=== PATIENT | male | born 1960 | race Caucasian/White ===

== ENCOUNTER → 2016-08-09 | Outpatient (REF) | payer OTHER ==
[2016-08-09 18:09] LABS: MEAN CORPUSCULAR HEMOGLOBIN 29.5 pg (27.0-33.0); MEAN CORPUSCULAR HGB CONC 33.5 g/dl (32.0-36.5); RED CELL DISTRIBUTION WIDTH 12.6 % (11.5-14.5); WHITE BLOOD COUNT 5.8 K/mm3 (4.0-10.0)
[2016-08-09 18:13] LABS: ALBUMIN 4.3 GM/DL (3.2-5.2); ALBUMIN/GLOBULIN RATIO 1.19 (1.00-1.93); ALKALINE PHOSPHATASE 125 U/L (45-117); ALT/SGPT 63 U/L (12-78); ANION GAP 7 MEQ/L (8-16); AST/SGOT 25 U/L (15-37); BILIRUBIN,TOTAL 0.7 MG/DL (0.2-1.0); BLOOD UREA NITROGEN 19 MG/DL (7-18); CARBON DIOXIDE LEVEL 28 MEQ/L (21-32); CHLORIDE LEVEL 103 MEQ/L (98-107); CHOLESTEROL LEVEL 224 MG/DL (<200); CREATININE FOR GFR 1.04 MG/DL (0.70-1.30); GLOMERULAR FILTRATION RATE > 60.0 (>56); GLUCOSE, FASTING 98 MG/DL (70-105); POTASSIUM SERUM 4.1 MEQ/L (3.5-5.1); SODIUM LEVEL 138 MEQ/L (136-145); TOTAL PROTEIN 7.9 GM/DL (6.4-8.2); TRIGLYCERIDES LEVEL 171 MG/DL (<150)
== END ==
LOC: M SFHCCLAY 10:15
PROVIDERS: ATTEND Nurse Practitioner Family
DX: K21.9 Gastro-esophageal reflux disease without esophagitis (principal); I10 Essential (primary) hypertension; E78.5 Hyperlipidemia, unspecified; F32.9 Major depressive disorder, single episode, unspecified; Z13.21 Encounter for screening for nutritional disorder

== ENCOUNTER 2017-09-27 14:51 | Emergency (ER) | payer OTHER, SELFPAY ==
[2017-09-27] MEDS ORDERED: RABIES IMMUNE GLOBULIN 1500 INTERNATIONAL UNITS/10 ML VIAL (90375) IM (17:00)
[2017-09-27] MEDS: RABIES VACCINE HUMAN 2.5 INTERNATIONAL UNITS/ML VIAL (90675) IM (17:21)
[2017-09-27] MEDS: ADACEL/BOOSTRIX VACCINE (DIPHTH/PERTUSS/ACELL/TETANUS)0.5ML SYR (90715) IM (17:21)
[2017-09-27] MEDS: RABIES IMMUNE GLOBULIN 1500 INTERNATIONAL UNITS/10 ML VIAL (90375) IM (18:27)
[2017-09-27] MEDS: RABIES IMMUNE GLOBULIN 300 INTERNATIONAL UNITS/2 ML VIAL (90375) IM (18:28)
== END 2017-09-27 18:37 | disposition home or self-care (01) ==
LOC: M ED 14:51
DX: Z20.3 Contact with and (suspected) exposure to rabies (principal); Z23 Encounter for immunization; S91.052A Open bite, left ankle, initial encounter; W55.51XA Bitten by raccoon, initial encounter; Y92.9 Unspecified place or not applicable; Y93.9 Activity, unspecified; K21.9 Gastro-esophageal reflux disease without esophagitis; F41.9 Anxiety disorder, unspecified; Z79.899 Other long term (current) drug therapy
CPT/HCPCS: 90715

== ENCOUNTER 2017-09-30 12:48 | Emergency (ER) | payer OTHER ==
[2017-09-30] MEDS: RABIES VACCINE HUMAN 2.5 INTERNATIONAL UNITS/ML VIAL (90675) IM (14:30)
== END 2017-09-30 14:36 | disposition home or self-care (01) ==
LOC: M ED 12:48
DX: Z20.3 Contact with and (suspected) exposure to rabies (principal); S91.052A Open bite, left ankle, initial encounter; W55.51XA Bitten by raccoon, initial encounter; Y92.89 Other specified places as the place of occurrence of the external cause
CPT/HCPCS: 90675

== ENCOUNTER 2017-10-04 06:17 | Emergency (ER) | payer OTHER ==
[2017-10-04] MEDS: RABIES VACCINE HUMAN 2.5 INTERNATIONAL UNITS/ML VIAL (90675) IM (06:30)
== END 2017-10-04 06:49 | disposition home or self-care (01) ==
LOC: M ED 06:17
DX: Z20.3 Contact with and (suspected) exposure to rabies (principal); Z23 Encounter for immunization; K21.9 Gastro-esophageal reflux disease without esophagitis; F41.9 Anxiety disorder, unspecified; Z79.899 Other long term (current) drug therapy
CPT/HCPCS: 90471

== ENCOUNTER → 2017-10-04 | Outpatient (REF) | payer OTHER ==
[2017-10-04 12:34] LABS: CHOLESTEROL LEVEL 189 MG/DL (<200); CHOLESTEROL RISK RATIO 4.973 (<5); HDL CHOLESTEROL 38 MG/DL (>40); LDL CHOLESTEROL 117.8 MG/DL (<100); NON-HDL-C 151 MG/DL; TRIGLYCERIDES LEVEL 166 MG/DL (<150)
== END ==
LOC: M SFHCCLAY 08:05
DX: E78.5 Hyperlipidemia, unspecified (principal)

== ENCOUNTER 2017-10-11 19:31 | Emergency (ER) | payer OTHER ==
[2017-10-11] MEDS: RABIES VACCINE HUMAN 2.5 INTERNATIONAL UNITS/ML VIAL (90675) IM (20:03)
== END 2017-10-11 20:26 | disposition home or self-care (01) ==
LOC: M ED 19:31
DX: Z20.3 Contact with and (suspected) exposure to rabies (principal); F41.9 Anxiety disorder, unspecified; K21.9 Gastro-esophageal reflux disease without esophagitis
CPT/HCPCS: 90471

== ENCOUNTER → 2019-08-14 | Outpatient (REF) | payer OTHER, SELFPAY ==
[~2019-08-14] MED LIST: AUGM875T28 PO; BACL1TAB9 PO; LORA1TAB4 PO; OMEP40CA97 PO
[2019-08-14 11:56] LABS: HEMATOCRIT 48.7 % (42.0-52.0); HEMOGLOBIN 16.2 g/dl (13.5-17.5); MEAN CORPUSCULAR HEMOGLOBIN 29.9 pg (27.0-33.0); MEAN CORPUSCULAR HGB CONC 33.3 g/dl (32.0-36.5); MEAN CORPUSCULAR VOLUME 89.9 fl (80.0-96.0); PLATELET COUNT, AUTOMATED 268 10^3/uL (150-450); RED BLOOD COUNT 5.42 10^6/uL (4.30-6.10); WHITE BLOOD COUNT 7.8 10^3/uL (4.0-10.0)
[2019-08-14 12:17] LABS: ALBUMIN 3.9 GM/DL (3.2-5.2); ALT/SGPT 41 U/L (12-78); BILIRUBIN,TOTAL 0.4 MG/DL (0.2-1.0); BLOOD UREA NITROGEN 25 MG/DL (7-18); CALCIUM LEVEL 8.7 MG/DL (8.8-10.2); CARBON DIOXIDE LEVEL 30 MEQ/L (21-32); CHLORIDE LEVEL 105 MEQ/L (98-107); CHOLESTEROL LEVEL 167 MG/DL (<200); CHOLESTEROL RISK RATIO 5.218 (<5); CREATININE FOR GFR 1.06 MG/DL (0.70-1.30); GLOMERULAR FILTRATION RATE > 60.0 (>49); GLUCOSE, FASTING 103 MG/DL (70-100); HDL CHOLESTEROL 32 MG/DL (>40); LDL CHOLESTEROL 89 MG/DL (<100); NON-HDL-C 135 MG/DL; POTASSIUM SERUM 4.3 MEQ/L (3.5-5.1); SODIUM LEVEL 140 MEQ/L (136-145); TOTAL PROTEIN 7.2 GM/DL (6.4-8.2); TRIGLYCERIDES LEVEL 230 MG/DL (<150)
[2019-08-14 13:57] LABS: TOTAL 25(OH) VITAMIN D 29.8 NG/ML (30.0-100.0)
[2019-08-16 00:10] LABS: TESTOSTERONE FREE (DIRECT) 4.4 pg/mL (6.6-18.1)
== END ==
LOC: M SFHCCLAY 08:17
PROVIDERS: ATTEND Nurse Practitioner Family
DX: R53.83 Other fatigue (principal); Z13.21 Encounter for screening for nutritional disorder; K21.9 Gastro-esophageal reflux disease without esophagitis; I10 Essential (primary) hypertension; E78.5 Hyperlipidemia, unspecified

== ENCOUNTER → 2021-01-17 | Outpatient (REF) | payer OTHER ==
[~2021-01-17] MED LIST changes: +OMEP40CA4 PO; -OMEP40CA97 PO
== END ==
LOC: M SFHCLERA 15:08
PROVIDERS: ATTEND Nurse Practitioner Family
DX: F43.23 Adjustment disorder with mixed anxiety and depressed mood (principal); Z53.9 Procedure and treatment not carried out, unspecified reason

== ENCOUNTER 2021-01-25 05:26 | Inpatient (IN) | payer OTHER ==
[2021-01-25 06:57] LABS: AMPHETAMINES LEVEL URINE POSITIVE (NEGATIVE); BARBITURATES URINE NEGATIVE (NEGATIVE); BENZODIAZEPINES URINE NEGATIVE (NEGATIVE); CANNABINOIDS URINE NEGATIVE (NEGATIVE); COCAINE METABOLITE URINE NEGATIVE (NEGATIVE); METHADONE URINE NEGATIVE (NEGATIVE); OPIATES URINE POSITIVE (NEGATIVE); PHENCYCLIDINE URINE NEGATIVE (NEGATIVE)
[2021-01-25 07:28] LABS: HEMATOCRIT 45.1 % (42.0-52.0); HEMOGLOBIN 14.9 g/dl (13.5-17.5); MEAN CORPUSCULAR HEMOGLOBIN 30.5 pg (27.0-33.0); MEAN CORPUSCULAR VOLUME 92.4 fl (80.0-96.0); PLATELET COUNT, AUTOMATED 244 10^3/uL (150-450); RED BLOOD COUNT 4.88 10^6/uL (4.30-6.10); WHITE BLOOD COUNT 10.3 10^3/uL (4.0-10.0)
[2021-01-25 07:57] LABS: ACETAMINOPHEN LEVEL < 2.0 UG/ML (10.0-30.0); ALBUMIN 3.7 GM/DL (3.2-5.2); ALT/SGPT 34 U/L (12-78); BILIRUBIN,DIRECT 0.2 MG/DL (0.0-0.2); BILIRUBIN,TOTAL 0.8 MG/DL (0.2-1.0); BLOOD UREA NITROGEN 19 MG/DL (7-18); CALCIUM LEVEL 8.6 MG/DL (8.8-10.2); CARBON DIOXIDE LEVEL 29 MEQ/L (21-32); CHLORIDE LEVEL 104 MEQ/L (98-107); CREATININE FOR GFR 0.99 MG/DL (0.70-1.30); ETHYL ALCOHOL (ETHANOL) < 0.003 % (0.000-0.010); GLOMERULAR FILTRATION RATE > 60.0 (>49); GLUCOSE, FASTING 98 MG/DL (70-100); SALICYLATE LEVEL < 1.7 MG/DL (5.0-30.0); SODIUM LEVEL 137 MEQ/L (136-145); TOTAL PROTEIN 6.9 GM/DL (6.4-8.2)
--- NOTE | 2021-01-25 09:14 | REP ---
INDICATION: altered mental status COMPARISON: None. TECHNIQUE: Axial noncontrast images from the skull base to the thoracic inlet with coronal reformations. This CT examination was performed using the following dose reduction techniques: Automated exposure control, adjustment of mA and/or kv according to the patient's size, and use of iterative reconstruction technique. FINDINGS: Atrophy with periventricular leukomalacia and microvascular ischemic changes are appreciated. The ventricles and sulci are symmetric. Scott-white differentiation is maintained. There is no evidence for acute intracranial hemorrhage, mass/mass effect, pathology or infarction. No extra-axial fluid collection. Calvarium is intact. Paranasal sinuses and mastoid air cells are clear. IMPRESSION: Atrophy and microvascular ischemic changes. No acute intracranial hemorrhage, infarction, or mass/mass effect. <Electronically signed by Lance Duque > 01/25/21 0994
[2021-01-25] MEDS ORDERED: METO1TAB32 PO (10:58)
[2021-01-25] MEDS ORDERED: MOME0.1C3 TOP (10:58)
[2021-01-25] MEDS ORDERED: HYDR-4514 PO (10:58)
[2021-01-25 12:16] LABS: RSV AMPLIFICATION NEGATIVE (NEGATIVE)
[2021-01-25] MEDS ORDERED: BACLOFEN 10 MG TAB PO ONE (12:50)
[2021-01-25] MEDS ORDERED: PERCOCET 5MG/325MG TAB PO ONE (12:50)
[2021-01-25] MEDS ORDERED: MAALOX 30 ML SUSP *UDC PO PRN (15:15)
[2021-01-25] MEDS ORDERED: MOM 30ML SUSPENSION UDC PO PRN (15:15)
[2021-01-25] MEDS ORDERED: LORazepam 1 MG TAB PO PRN (15:15)
[2021-01-25] MEDS ORDERED: traZODone 50 MG TAB PO PRN (15:15)
[2021-01-25] MEDS ORDERED: haloperidoL 5 MG TAB PO PRN (15:15)
[2021-01-25 18:22] VITALS: BP 143/88
--- NOTE | 2021-01-25 20:48 | ECGEPIP ---
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
[2021-01-25] MEDS: LORazepam 1 MG TAB PO SCH (21:29)
[2021-01-25] MEDS: BACLOFEN 10 MG TAB PO PRN (21:29)
[2021-01-25] MEDS: ANEXSIA, NORCO 7.5MG/325MG TABLET(HYDROCODONE/APAP) PO PRN (22:10)
[2021-01-26 05:55] VITALS: BP 130/75
[2021-01-26 06:00] VITALS: BP 130/75
[2021-01-26] MEDS: BACLOFEN 10 MG TAB PO PRN ×2 (08:31→16:45)
[2021-01-26] MEDS: ANEXSIA, NORCO 7.5MG/325MG TABLET(HYDROCODONE/APAP) PO PRN ×3 (08:32→22:57)
[2021-01-26] MEDS ORDERED: OMEPRAZOLE 20 MG CAP PO SCH (09:00)
[2021-01-26] MEDS ORDERED: METOPROLOL SUCC *XL* 25MG TAB (TopROL *XL*) PO SCH (09:00)
[2021-01-26] MEDS: TRIAMCINOLONE ACETONIDE 0.025 % 80 GM CREAM TOP SCH ×4 (09:00→21:53)
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
--- NOTE | 2021-01-26 13:45 | HPEPDOC ---
General Date of Admission Jan 25, 2021 at 15:12 Date of Service: Jan 26, 2021 Chief Complaint The patient is a 60-year-old male admitted with a reason for visit of Psychotic Disorder Nos. Source: Patient, RN/MD History of Present Illness 60-year-old male with past medical history of hypertension, GERD, anxiety, depression, insomnia, chronic back pain was admitted to [facility] for unspecified psychotic disorder. He has been examined here today for medical history and physical. Patient denies any complaints this morning. Normal speech, no hallucinations, cooperative, well-groomed. Home Medications Scheduled Lorazepam (Lorazepam) 1 Mg Tab, 1 MG PO QHS, (Reported) Metoprolol Succinate (Metoprolol Succinate) 25 Mg Tab.er.24h, 25 MG PO DAILY, (Reported) Mometasone Furoate (Mometasone Furoate) 15 Gm Cream..g., 1 APLCT TOP DAILY, (Reported) APPLY TO BACK Omeprazole (Omeprazole) 40 Mg Cap, 40 MG PO DAILY, (Reported) Scheduled PRN Hydrocodone/Acetaminophen (Hydrocodone-Acetamin 7.5-325) 1 Each Tablet, 1 TAB PO Q4-6HP PRN for PAIN LEVEL 5-10, (Reported) Allergies Coded Allergies: No Known Allergies (Verified , 09/30/17) Past Medical History Medical History Hypertension, hyperlipidemia, GERD, vitamin D deficiency, anxiety, insomnia, depression, herpes simplex infection, chronic low back pain Surgical History None Family History Significant Family History: Heart disease (Father had bypass surgery, mother also had heart disease) Social History * Smoker: current smoker A-FIB/CHADSVASC A-FIB History Current/History of A-Fib/PAF?: No Age/Risk Factor Scoring CHADSVASC: CHADSVASC Response (Comments) Value Age Risk Factor Age < 65 years old 0 Gender Risk Factor Male 0 Hx of CHF No 0 Hx of HTN No 0 Hx of Stroke/TIA/or VTE No 0 Hx of Diabetes No 0 Hx of Vascular Disease No 0 Total 0 Review of Systems Constitutional: Denies: Chills, Fever, Night Sweats Eyes: Denies: Pain, Vision change ENT: Denies: Head Aches, Ear Pain, Dysphagia Skin: Denies: Rash, Lesions, Breakdown Pulmonary: Denies: Dyspnea, Cough Cardiovascular: Denies: Chest Pain, Palpitations, Orthopnea, Paroxysmal Noc. Dyspnea, Lt Headedness Gastrointestinal: Denies: Nausea, Vomiting, Abdominal Pain, Diarrhea Genitourinary: Denies: Dysuria, Frequency, Incontinence, Retention Musculoskeletal: Reports: Back Pain Physical Examination General Exam: Positive: Alert, Cooperative, No Acute Distress Eye Exam: Positive: PERRLA, Conjunctiva & lids normal, EOMI; Negative: Sclera icteric ENT Exam: Positive: Atraumatic, Mucous membr. moist/pink, Pharynx Normal Neck Exam: Positive: Supple; Negative: JVD, thyromegaly Chest Exam: Positive: Clear to auscultation, Normal air movement Heart Exam: Positive: Rate Normal, Regular Rhythm, Normal S1, Normal S2; Negative: Murmurs, Rubs Abdomen Exam: Positive: Normal bowel sounds, Soft; Negative: Tenderness, Hepatospenomegaly Extremity Exam: Negative: Clubbing, Cyanosis, Edema Vital Signs Vital Signs Date Time Temp Pulse Resp B/P (MAP) Pulse Ox O2 Delivery O2 Flow Rate FiO2 01/26/21 09:30 16 01/26/21 08:32 82 01/26/21 06:00 98.3 82 130/75 (93) 01/26/21 05:55 Room Air Assessment/Plan 60-year-old male with past medical history of hypertension, GERD, anxiety, depression, insomnia, chronic back pain was admitted to [facility] for unspecified psychotic disorder. He has been examined here today for medical history and physical. Psychosis/anxiety/depression As per psychiatrist Hypertension Continue metoprolol GERD Continue PPI Chronic back pain Continue Percocet and baclofen Eczema on the back Will give triamcinolone in place of mometasone Plan / VTE VTE Prophylaxis Ordered?: No (Freely ambulate) RACHEL GOODRICH MD Jan 26, 2021 11:34
[2021-01-26 13:54] VITALS: BP 130/75
[2021-01-26 18:38] VITALS: BP 139/82
[2021-01-26] MEDS: LORazepam 1 MG TAB PO SCH (20:38)
[2021-01-27] MEDS: BACLOFEN 10 MG TAB PO PRN (05:06)
[2021-01-27] MEDS: ANEXSIA, NORCO 7.5MG/325MG TABLET(HYDROCODONE/APAP) PO PRN (05:06)
[2021-01-27 05:53] VITALS: BP 135/87
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
== END 2021-01-27 08:03 | disposition home or self-care (01) | DRG 751 ==
LOC: M ED 05:26 → M ED INP 15:12 → M PSY 18:17
PROVIDERS: ADMIT Psychiatry & Neurology Psychiatry; ATTEND Psychiatry & Neurology Psychiatry
DX: F23 Brief psychotic disorder (principal); I10 Essential (primary) hypertension; Z79.899 Other long term (current) drug therapy; K21.9 Gastro-esophageal reflux disease without esophagitis; F41.9 Anxiety disorder, unspecified; G47.00 Insomnia, unspecified; M54.5 Low back pain; L30.9 Dermatitis, unspecified

== ENCOUNTER 2022-11-29 17:12 | Emergency (ER) | payer OTHER, SELFPAY ==
[~2022-11-29] VITALS: Ht 180.3 cm; Wt 90.7 kg
[~2022-11-29 17:12] MED LIST changes: +HYDR-4514 PO; +LORA1TAB23 PO; -LORA1TAB4 PO; +METO1TAB32 PO; +MOME0.1C3 TOP
[2022-11-29 17:13] VITALS: BP 181/93
[2022-11-29] MEDS ORDERED: KETOROLAC 30 MG/ML 1ML VIAL IM STA (18:03)
[2022-11-29] MEDS ORDERED: METOCLOPRAMIDE 10MG TAB PO ONE (18:05)
[2022-11-29] MEDS ORDERED: REGL10TA6 PO (18:12)
[2022-11-29 18:44] VITALS: BP 120/78
[2022-11-30] MEDS ORDERED: CLONI1TA PO (16:21)
== END 2022-11-29 18:56 | disposition home or self-care (01) ==
LOC: M ED 17:12
DX: F11.13 Opioid abuse with withdrawal (principal); I10 Essential (primary) hypertension
CPT/HCPCS: 96372; 99283; J1885

== ENCOUNTER 2022-11-30 13:33 | Emergency (ER) | payer SELFPAY ==
[~2022-11-30] VITALS: Ht 180.3 cm; Wt 90.0 kg
[~2022-11-30 13:33] MED LIST changes: -CLONI1TA PO
[2022-11-30] MEDS ORDERED: ACETAMINOPHEN TAB 650MG DOSE (2X325MG) PO ONE (15:10)
[2022-11-30] MEDS ORDERED: ONDANSETRON 4MG ORAL DISINTEGRATING TAB PO ONE (15:20)
[2022-11-30 15:35] LABS: HEMATOCRIT 48.6 % (42.0-52.0); HEMOGLOBIN 15.7 g/dl (13.5-17.5); MEAN CORPUSCULAR HEMOGLOBIN 27.6 pg (27.0-33.0); MEAN CORPUSCULAR HGB CONC 32.3 g/dl (32.0-36.5); MEAN CORPUSCULAR VOLUME 85.4 fl (80.0-96.0); PLATELET COUNT, AUTOMATED 311 10^3/uL (150-450); RED BLOOD COUNT 5.69 10^6/uL (4.30-6.10); WHITE BLOOD COUNT 5.2 10^3/uL (4.0-10.0)
[2022-11-30 15:51] LABS: BARBITURATES URINE NEGATIVE (NEGATIVE); BENZODIAZEPINES URINE NEGATIVE (NEGATIVE); METHADONE URINE NEGATIVE (NEGATIVE)
[2022-11-30 15:52] LABS: OPIATES URINE NEGATIVE (NEGATIVE); PHENCYCLIDINE URINE NEGATIVE (NEGATIVE)
[2022-11-30 15:53] LABS: AMPHETAMINES LEVEL URINE POSITIVE (NEGATIVE); CANNABINOIDS URINE POSITIVE (NEGATIVE); COCAINE METABOLITE URINE POSITIVE (NEGATIVE)
[2022-11-30 15:57] LABS: ETHYL ALCOHOL (ETHANOL) < 0.003 % (0.000-0.010)
[2022-11-30 15:58] LABS: ACETAMINOPHEN LEVEL < 2.0 UG/ML (10.0-20.0); ALBUMIN 3.9 G/DL (3.2-5.2); ALKALINE PHOSPHATASE 121 U/L (46-116); ALT/SGPT 27 U/L (7.0-40); AST/SGOT 21 U/L (<34); BILIRUBIN,DIRECT 0.2 MG/DL (<0.4); BILIRUBIN,TOTAL 0.5 MG/DL (0.3-1.2); BLOOD UREA NITROGEN 12 MG/DL (9-23); CALCIUM LEVEL 9.3 MG/DL (8.3-10.6); CARBON DIOXIDE LEVEL 26 MMOL/L (20-31); CHLORIDE LEVEL 106 MMOL/L (98-107); CREATININE FOR GFR 0.77 MG/DL (0.70-1.30); GLOMERULAR FILTRATION RATE > 60.0 (>49); GLUCOSE, FASTING 117 MG/DL (74-106); POTASSIUM SERUM 3.8 MMOL/L (3.5-5.1); SALICYLATE LEVEL < 3.0 MG/DL (<30); SODIUM LEVEL 141 MMOL/L (136-145); TOTAL PROTEIN 7.6 G/DL (5.7-8.2)
[2022-11-30 15:59] LABS: THYROID STIMULATING HORMONE 0.674 uIU/ML (0.55-4.78)
[2022-11-30] MEDS ORDERED: cloNIDine 0.1MG TABLET PO ONE (16:15)
[2022-11-30 16:20] VITALS: BP 164/105
[2022-11-30] MEDS ORDERED: CLONI1TA PO (16:21)
[2022-11-30 16:30] VITALS: BP 149/80
== END 2022-11-30 16:46 | disposition home or self-care (01) ==
LOC: M ED 13:33
DX: F11.13 Opioid abuse with withdrawal (principal); F19.10 Other psychoactive substance abuse, uncomplicated; I10 Essential (primary) hypertension; F41.9 Anxiety disorder, unspecified; M54.9 Dorsalgia, unspecified; G89.29 Other chronic pain

== ENCOUNTER → 2022-11-30 | Outpatient (CLI) | payer OTHER, SELFPAY ==
[~2022-11-30] MED LIST changes: +CLONI1TA PO; +REGL10TA6 PO
== END ==
LOC: M OUTALCOH 12:33
PROVIDERS: ATTEND Psychiatry & Neurology Psychiatry
DX: Z13.39 Encounter for screening examination for other mental health and behavioral disorders (principal)